=== PATIENT | male | born 1950 | race African-American/Black ===

== ENCOUNTER 2018-02-18 02:30 | Emergency (ER) | payer OTHER ==
[~2018-02-18] VITALS: Ht 188 cm; Wt 102.1 kg
[2018-02-18] MEDS ORDERED: ETOMIDATE (2MG/ML) 20ML VIAL IV ONE (02:38)
[2018-02-18] MEDS ORDERED: SUCCINYLCHOLINE CHLORIDE 20 MG/ML 10ML VIAL IV ONE ×2 (02:38→02:47)
[2018-02-18] MEDS ORDERED: CALCIUM CHLOR(10%) 100MG/ML 10ML SYRINGE IV ONE (02:40)
[2018-02-18] MEDS ORDERED: SODIUM BICARBONATE 8.4% INJ 50ML SYRINGE IV ONE (02:40)
[2018-02-18] MEDS ORDERED: AMIODARONE HCL (50 MG/ ML) 3 ML VIAL IV ONE (02:40)
[2018-02-18] MEDS ORDERED: DOPamine 1600mCg/ml 400MG/250ml NSorD5 KIT/BAG IV ONE (02:40)
[2018-02-18] MEDS ORDERED: EPINEPHrine HCL 1 MG/10 ML SYRG IV ONE (02:40)
[2018-02-18] MEDS ORDERED: ATROPINE SULF 1 MG/10ml SYR IV ONE (02:40)
[2018-02-18] MEDS ORDERED: ATROPINE SULF 1 MG/10ml SYR ONE (02:50)
[2018-02-18] MEDS ORDERED: EPINEPHrine HCL 1 MG/1 ML AMP ONE (02:56)
[2018-02-18] MEDS ORDERED: EPINEPHrine HCL 1 MG/10 ML SYRG ONE ×2 (03:12→03:23)
[2018-02-18] MEDS ORDERED: methylPREDNISolone SOD SUCC 125 MG/2 ML VL ONE ×2 (03:39→03:41)
[2018-02-18] MEDS ORDERED: SODIUM BICARBONATE 8.4% INJ 50ML SYRINGE ONE (03:40)
[2018-02-18] MEDS ORDERED: EPINEPHrine HCL 250 ML IV ONE (03:48)
[2018-02-18] MEDS ORDERED: PANTOPRAZOLE 40 MG/10 ML VIAL IV ONE (04:01)
[2018-02-18 04:54] VITALS: BP 143/71
[2018-02-18] MEDS ORDERED: LEVETIRACETAM 500 MG/5ML INJ IV ONE (05:13)
[2018-02-18] MEDS ORDERED: MANNITOL 20 % (20GM/100ML) 0 ML IV ONE (05:14)
[2018-02-18] MEDS ORDERED: DEXAMETHASONE SOD PHOS 10MG/1ML VIAL INJ IV ONE (05:15)
[2018-02-18] MEDS ORDERED: LEVETIRACETAM INJ 1,000 MG in D5W 5% 100 ML IV ONE (05:15)
[2018-02-18] MEDS ORDERED: MANNITOL 20% SOLN 100 gm/500ml 250 ML IV ONE (05:15)
[2018-02-18] MEDS ORDERED: MANNITOL FTV 25% 12.5 GM/50 ML 50 ML IV ONE ×2 (05:17→05:39)
[2018-02-18 05:36] LABS: Basophils # (auto) 0.1 uL; Hemoglobin 13.6 g/dL (13.5-17.5); Monocytes # (auto) 0.9 uL; Nucleated Red Blood Cells % 0.1 %
[2018-02-18 05:37] LABS: Basophils % (auto) 0.5 % (0.0-2.0); Eosinophils # (auto) 0.1 uL; Eosinophils % (auto) 1.2 % (0.0-7.0); Hematocrit 44.4 % (41.0-53.0); Lymphocytes # (auto) 5.6 uL; Lymphocytes % (auto) 48.2 % (10.0-50.0); Mean Corpuscular Hemoglobin 27.2 pg (28.0-32.0); Mean Corpuscular Hgb Conc. 30.6 g/dL (32.0-36.0); Mean Corpuscular Volume 88.9 fL (80.0-100.0); Monocytes % (auto) 7.7 % (0.0-12.0); Neutrophils % (auto) 42.4 % (37.0-80.0); Platelet Count (auto) 240 10^3/uL (140-450); White Blood Cell 11.7 10^3/uL (4.4-10.8)
[2018-02-18 05:47] LABS: Alanine Aminotransferase 20 U/L (16-61); Albumin 2.5 g/dL (3.4-5.0); Anion Gap 13 (5-15); Aspartate Aminotransferase 20 U/L (15-37); BUN/Creatinine Ratio 11.1; Blood Urea Nitrogen 18 mg/dL (7-18); Calcium 10.7 mg/dL (8.5-10.1); Carbon Dioxide 22 mmol/L (21-32); Chloride 115 mmol/L (98-107); GFR African American 55 mL/min; GFR Non-African American 45 mL/min; Glucose 260 mg/dL (74-106); Magnesium 2.1 mg/dL (1.6-2.6); Potassium 4.3 mmol/L (3.5-5.1); Sodium 150 mmol/L (136-145)
[2018-02-18 05:49] LABS: Alkaline Phosphatase 73 U/L (45-117); Bilirubin, Total 0.2 mg/dL (0.2-1.0); Total Protein 5.3 g/dL (6.4-8.2)
[2018-02-18 06:18] VITALS: BP 143/71
== END 2018-02-18 06:34 | disposition short-term general hospital (02) ==
LOC: EDBD 02:30 → EDUNIT# 02:30 → ER 02:39
DX: I63.9 Cerebral infarction, unspecified (principal); I46.9 Cardiac arrest, cause unspecified; G93.41 Metabolic encephalopathy; E78.5 Hyperlipidemia, unspecified; E11.9 Type 2 diabetes mellitus without complications; I11.0 Hypertensive heart disease with heart failure; I50.9 Heart failure, unspecified
CPT/HCPCS: 31500; 36415; 36600; 70450; 71045; 80053; 80320; 82805; 83735; 83880; 84443; 84484; 85025; 87070; 87081; 87205; 92950; 93005; 94002; 99291; 99292; C9113; J0171; J0282; J0330; J1265; J1953; J2150; J2930; J7060